=== PATIENT | male | born 1990 | race African-American/Black ===

== ENCOUNTER 2016-08-10 12:55 | Emergency (ER) | payer SELFPAY ==
[~2016-08-10] VITALS: Ht 185.4 cm; Wt 75.0 kg
[2016-08-10 12:56] VITALS: BP 116/66; PULSE 96; RESP 20; TEMP 98.3; O2SAT 96
[2016-08-10 13:24] VITALS: BP 121/61; PULSE 95; RESP 16; O2SAT 95
[2016-08-10] MEDS ORDERED: ONDANSETRON ODT 4 MG TAB PO ONE (13:30)
--- NOTE | 2016-08-10 13:42 | PD ---
HPI Chief Complaint: GI Complaint Time Seen by Provider: 13:38 Travel History International Travel<30 days: No Contact w/Intl Traveler<30days: No Traveled to known affect area: No History of Present Illness HPI Patient is a 26-year-old male presenting to the emergency for evaluation of nausea and vomiting. States he woke up at 2 AM this morning feeling sick, he subsequently vomited hourly for 5 hours approximately. He developed diarrhea, having 2-3 episodes today. Patient was able to eat bananas and crackers and some Gatorade at 11 AM keeping that down and tolerating it. He states he feels a little nauseated but overall better. He reports calling out to his job at [employer] this morning stating that he needs a note in order to not get fired [facility] Past Medical History Medical History: Denies Significant Hx Developmental Delay: No Diminished Hearing: No Medical other: Yes (SYPHILIS) Immunizations Current: Yes (UTD) Influenza Vaccination: No Past Surgical History Surgical History: No Previous Surgery Social History Alcohol Use: No Tobacco Use: No Substance Use: No Allergies-Medications (Allergen,Severity, Reaction): Coded Allergies: No Known Allergies (Verified , 08/10/16) Reported Meds & Prescriptions Reported Meds & Active Scripts Active Zofran Odt (Ondansetron Odt) 4 Mg Tab 4 Mg SL Q6HR PRN 3 Days Review of Systems Except as stated in HPI: all other systems reviewed are Neg General / Constitutional: No: Fever, Chills Cardiovascular: No: Chest Pain or Discomfort Respiratory: No: Shortness of Breath Gastrointestinal: Positive: Nausea, Vomiting, Diarrhea, No: Abdominal Pain Genitourinary: No: Dysuria Musculoskeletal: No: Myalgias Neurologic: No: Weakness, Dizziness Physical Exam Narrative GENERAL: Old, well-nourished, alert male. Resting comfortably in no acute distress. Appears well SKIN: Focused skin assessment warm/dry. HEAD: Atraumatic. Normocephalic. EYES: Pupils equal and round. No scleral icterus. No injection or drainage. ENT: No nasal bleeding or discharge. Mucous membranes pink and moist. NECK: Trachea midline. No JVD. CARDIOVASCULAR: Regular rate and rhythm. No murmur appreciated. RESPIRATORY: No accessory muscle use. Clear to auscultation. Breath sounds equal bilaterally. GASTROINTESTINAL: Abdomen soft, non-tender, nondistended. Hepatic and splenic margins not palpable. MUSCULOSKELETAL: No obvious deformities. No clubbing. No cyanosis. No edema. NEUROLOGICAL: Awake and alert. No obvious cranial nerve deficits. Motor grossly within normal limits. Normal speech. PSYCHIATRIC: Appropriate mood and affect; insight and judgment normal. Data Data Last Documented VS Vital Signs Date Time Temp Pulse Resp B/P Pulse Ox O2 Delivery O2 Flow Rate FiO2 08/10/16 13:24 95 16 121/61 95 Room Air 08/10/16 12:56 98.3 Orders Ondansetron Odt (Zofran Odt) (08/10/16 13:30) [facility] Medical Decision Making Medical Screen Exam Complete: Yes Emergency Medical Condition: Yes Interpretation(s) Vital Signs Date Time Temp Pulse Resp B/P Pulse Ox O2 Delivery O2 Flow Rate FiO2 08/10/16 13:24 95 16 121/61 95 Room Air 08/10/16 12:56 98.3 96 20 116/66 96 Room Air Differential Diagnosis Gastritis versus gastroenteritis versus foodborne illness versus obstruction versus cholecystitis versus pancreatitis versus other Narrative Course Patient is a 26-year-old presenting to the emergency department for evaluation of nausea and vomiting that started 2 AM, subsequently resolving around 11 when he was able to tolerate oral food and fluids. Patient reports feeling somewhat nauseated but overall better. He is requesting a note for work. Patient will be given Zofran orally, and by mouth challenge. If patient tolerates he'll be discharged home. He has had no further vomiting or episodes of diarrhea since 11 AM this morning. Patient Tolerated oral fluids. The patient will be discharged home, he is advised to return to emergency department for any new or worsening symptoms. He is encouraged to maintain a bland low residue diet, increase as tolerated. He verbalized understanding of discharge instructions. Patient stable for discharge. Diagnosis Primary Impression: Nausea & vomiting Qualified Code: R11.2 - Non-intractable vomiting with nausea, unspecified vomiting type Referrals: Primary Care Physician Patient Instructions: Acute Nausea and Vomiting (ED), Diet for Ulcers and Gastritis (ED), General Instructions Departure Forms: Tests/Procedures, Work Release Enter return to work date: August 11, 2016 Additional Instructions: Follow up with your primary doctor Maintain adequate fluid intake Medications as needed and as directed Return to emergency department for any new or worsening symptoms Med/Other Pt SpecificInfo: Prescription(s) given Scripts Ondansetron Odt (Zofran Odt)4 Mg Tab4 Mg SL Q6HR PRN (Nausea/Vomiting) 3 Days Ref 0 Prov:Fani Doherty 08/10/16 Disposition: 01 DISCHARGE HOME Condition: Stable Fani Doherty August 10, 2016 13:42
[2016-08-10] MEDS ORDERED: ZOFR4TAB3 SL (14:31)
== END 2016-08-10 15:05 | disposition home or self-care (01) ==
LOC: NEPD 12:55
DX: R11.2 Nausea with vomiting, unspecified (principal)
CPT/HCPCS: 99283